=== PATIENT | male | born 1995 | race Two or more races ===

== ENCOUNTER 2024-05-10 02:48 | Emergency (ER) | payer MEDICAID, SELFPAY ==
[2024-05-10 02:49] VITALS: BMI 21.6
[2024-05-10 03:02] VITALS: BP 107/63; PULSE 108; RESP 18; TEMP 37.4; O2SAT 96
--- NOTE | 2024-05-10 03:04 | PD.EDRME ---
Rapid Medical Screening Exam RME Arrival date/time: 05/10/24 02:48 28 year old male present to ED for c/o of n/v. abd pain, recent from [place] I have greeted and performed a focused initial assessment of this patient. A comprehensive ED assessment and evaluation of the patient, analysis of all test results, and completion of the medical decision making process will be conducted by additional ED providers. Chief Complaint: Abdominal Pain Time Seen by Provider: 05/10/24 02:51 Vital signs: Vital Signs Temperature 99.3 F 05/10/24 03:02 Pulse Rate 108 H 05/10/24 03:02 Respiratory Rate 18 05/10/24 03:02 Blood Pressure 107/63 05/10/24 03:02 Pulse Oximetry (%) 96 05/10/24 03:02 Oxygen Delivery Method Room Air 05/10/24 03:02
--- NOTE | 2024-05-10 03:34 | EKG_ITS ---
[facility] Test Date: 2024-05-10 Pat Name: MILTON BARRERA Department: Room: - Gender: Male Patient Coordinator: : 1995 Requested By: Duke Walker Order Number: [id number] Reading MD: Duke Walker Measurements Intervals [place] Rate: 108 P: 43 MD: 128 QRS: 252 QRSD: 93 T: 115 QT: 319 QTc: 428 Interpretive Statements SINUS TACHYCARDIA LEFT ATRIAL ENLARGEMENT [-0.15mV P-WAVE IN V1/V2] INDETERMINATE AXIS INCOMPLETE RIGHT BUNDLE BRANCH BLOCK [90+ ms QRS DURATION, TERMINAL R IN V1/V2, 40+ ms S IN I/aVL/V4/V5/V6] ST DEVIATION AND MODERATE T-WAVE ABNORMALITY, CONSIDER LATERAL ISCHEMIA [-0.1+ mV T-WAVE IN I/aVL/V5/V6] Compared to ECG 09/12/2022 21:51:24 Indeterminate axis now present Sinus rhythm no longer present ST (T wave) deviation no longer present Early repolarization no longer present T-wave abnormality still present Possible ischemia still present /store/S0/[id number]/ecg/[id number].pdf
[2024-05-10 03:38] LABS: Basophils % (Auto) 0 % (0-2.5); Eosinophils # (Auto) 0.1 Thou/mm3 (0.0-0.5); Eosinophils % (Auto) 1 % (0-10); Hematocrit 41.3 % (41.0-53.0); Hemoglobin 13.6 g/dL (13.5-16.0); Immature Granulocytes % (Auto) 0 % (0-0); Immature Granulocytes Auto 0.04 Thou/mm3 (0.00-0.00); Lymphocytes # (Auto) 0.5 Thou/mm3 (1.0-4.8); Lymphocytes % (Auto) 6 % (10-50); Mean Corpuscular HGB Conc 32.9 g/dl (31.0-37.0); Mean Corpuscular Volume 91 fL (80-100); Monocytes # (Auto) 0.6 Thou/mm3 (0.0-0.8); Monocytes % (Auto) 6 % (0-12); Neutrophils # (Auto) 8.1 Thou/mm3 (1.8-7.7); Neutrophils % (Auto) 86 % (37-80); Nucleated Red Blood Cell % 0 /100 WBC (0); Platelet Count 199 Thou/mm3 (140-440); RDW Standard Deviation 46.9 fL (35.1-43.9); Red Blood Count 4.53 Miln/mm3 (4.50-5.90); White Blood Count 9.3 Thou/mm3 (3.8-10.6)
[2024-05-10] MEDS: ONDANSETRON ODT 4 MG TABRAP PO (03:51)
[2024-05-10 04:00] LABS: Alanine Aminotransferase 191 U/L (10-49); Albumin, Serum 4.4 gm/dL (3.5-5.0); Albumin/Globulin Ratio 1.5 (1.2-2.2); Alkaline Phosphatase 166 U/L (46-116); Anion Gap 10 (7-16); Aspartate Amino Transferase 121 U/L (0-34); BUN/Creatinine Ratio 24 Ratio (12-20); Blood Urea Nitrogen 26 mg/dL (9-23); Calcium 10.1 mg/dL (8.3-10.6); Calcium (Corrected) 10.1 mg/dL (8.5-10.1); Carbon Dioxide 18.8 mMol/L (20.0-31.0); Chloride 113 mMol/L (98-107); Creatinine (Component) 1.1 mg/dL (0.6-1.3); Estimated Creatinine Clearance 82.6 mL/min (>60); Globulin 2.9 gm/dL (2.3-3.5); Glucose 112 mg/dL (74-106); Lipase 29 U/L (12-53); Osmolality,Calculated 288 (275-295); Potassium 4.6 mMol/L (3.4-5.1); Sodium 142 mMol/L (136-145); Total Protein 7.3 gm/dL (5.7-8.2); Troponin I < 0.020 ng/mL (0.0-0.045); eGFR > 60 See Note
[2024-05-10] MEDS: ONDANSETRON INJ 2 MG/ML INJ 2 ML 4 MG IV (04:45)
[2024-05-10] MEDS: SODIUM CHLORIDE 0.9% 1000 ML 1,000 ML 999 ML IV (04:52)
[2024-05-10 05:58] VITALS: BP 131/89; PULSE 108; RESP 19; TEMP 37.2; O2SAT 97
--- NOTE | 2024-05-10 06:37 | PD.EDNV ---
Nausea/Vomit./Diarrhea-RME/HPI General Chief complaint: Abdominal Pain Stated complaint: POSSIBLE FOOD POISONING Time Seen by Provider: 05/10/24 02:51 Arrival date/time: 05/10/24 02:48 RME / HPI RME / HPI Narrative: 05/10/24 02:48 28 year old male present to ED for c/o of n/v. abd pain, recent from [place] I have greeted and performed a focused initial assessment of this patient. A comprehensive ED assessment and evaluation of the patient, analysis of all test results, and completion of the medical decision making process will be conducted by additional ED providers. DR. DAVENPORT MAIN ED EVALUATION: 28 year old male presents to the Emergency Department with complaints of nausea, vomiting, diarrhea, and upper abdominal pain. Symptoms are mild to moderate. Pain is described as aching and associated with vomiting. Patient just returned from [place] Saturday, 3 days ago. No chest pain, fall, injury, cough, fever, chills, or other symptoms reported at this time. By the time I saw the patient he had already got pain medication and states he was feeling better. He was just complaining of acid reflux symptoms and asked for an antiacid. He states that his PCP has been decreasing his famotidone and omeprazole and that is why he has been having more acid reflux. 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 Neal. Social Hx: No tobacco, alcohol, or substance use. Related Data Home Medications ?Medication ?Instructions ?Recorded ?Confirmed metoprolol succinate 50 mg 100 mg PO QDAY 08/24/20 06/21/23 tablet,extended release 24 hr amlodipine 10 mg tablet 1 tab PO HS 09/28/21 06/21/23 famotidine 20 mg tablet 20 mg PO QDAY 09/28/21 06/21/23 pantoprazole 40 mg tablet,delayed 40 mg PO BID 09/28/21 06/21/23 release (Protonix) bumetanide 2 mg tablet 2 mg PO QDAY 06/21/23 06/21/23 gabapentin 100 mg capsule 100 mg PO QPM 06/21/23 06/21/23 mycophenolate mofetil 500 mg 500 mg PO BID 06/21/23 06/21/23 tablet (CellCept) tamsulosin 0.4 mg capsule 0.4 mg PO QDAY 06/21/23 06/21/23 Allergies Allergy/AdvReac Type Severity Reaction Status Date / Time vancomycin Allergy Rash Verified 06/21/23 17:16 Review of Systems Review of Systems Systems Reviewed: All systems reviewed, normal except as documented Past Medical History Past Medical History CARDIAC: Positive Cardiac Disorders and Hypertension GASTROINTESTINAL: Positive Gastrointestinal Disorders and Ulcer GENITOURINARY: Positive Genitourinary Disorders, Renal Disease and Dialysis OTHER HISTORY: Positive Autoimmune Disease Surgical History SURGICAL: Positive Abdominal Surgery Social History SMOKING STATUS: Never smoker SUBSTANCE USE: does not use ALCOHOL: Never ED Exam Narrative Physical exam: GENERAL APPEARANCE: alert and oriented x 4, well-developed, well-nourished, no acute distress VITALS: All vitals were reviewed and the pulse ox is 97% on room air, which is normal according to my interpretation. HEENT: Normocephalic, atraumatic; pupils equal, round, reactive to light; EOMI; mucous membranes pink, moist; oropharynx clear NECK: Supple LUNGS: CTABL; no wheezes, no rales, no rhonchi HEART: Regular rate, regular rhythm; normal S1, S2; no murmurs ABDOMEN: non distended; normal BS; soft, no tenderness, no guarding, no rebound; no masses, no organomegaly, no hernia BACK: no CVA tenderness EXTREMITIES: atraumatic; no edema NEUROLOGIC: awake; alert and oriented x4; cranial nerves II-XII grossly intact; no focal sensory or motor deficits PSYCHIATRIC: appropriate mood and affect SKIN: warm, dry, normal color; no rashes Course Course Course Narrative: [id number]: Request UA Quality Measures none Orders Category Date Time Status EKG (ED ONLY) *Do not use* NOW Care 05/10/24 03:34 Completed EKG (ED Only) Stat Exams 05/10/24 03:34 Draft CBC Stat Lab 05/10/24 03:18 Completed CMP [Comprehensive Metabolic Panel] Stat Lab 05/10/24 03:18 Completed Lipase Stat Lab 05/10/24 03:18 Completed Troponin I Stat Lab 05/10/24 03:18 Completed UA [Urinalysis] Stat Lab 05/10/24 09:47 Completed Ondansetron Inj [Zofran Inj] Med 05/10/24 03:04 Discontinued 4 mg IV X1 ONE Ondansetron Odt [Zofran Odt] Med 05/10/24 03:35 Discontinued 4 mg PO X1 ONE Pantoprazole Inj [Protonix Inj] Med 05/10/24 07:04 Discontinued 40 mg IVP X1 ONE Sodium Chloride 0.9% 1000 ml [Ns] 1,000 ml Med 05/10/24 03:05 Discontinued IV 999 mls/hr Sucralfate Susp [Carafate Susp] Med 05/10/24 07:04 Discontinued 1 gm PO X1 ONE mg Hyd/Al Hyd/Eder Susp [Maalox Susp] Med 05/10/24 07:04 Discontinued 30 ml PO X1 ONE Vital Signs Vital signs: Vital Signs Temperature 99.3 F 05/10/24 03:02 Pulse Rate 108 H 05/10/24 03:02 Respiratory Rate 18 05/10/24 03:02 Blood Pressure 107/63 05/10/24 03:02 Pulse Oximetry (%) 96 05/10/24 03:02 Oxygen Delivery Method Room Air 05/10/24 03:02 Nausea/Vomiting/Diarrhea MDM Narrative MDM Narrative:: Swetha Lowry am scribing for and in the presence of Dr. Davenport. 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 Neal. How is presenting disease/condition affected by chronic disease/condition?: exacerbated by Evaluation data The following diagnostics were reviewed and interpreted by me:: lab results and EKG tracing(s) Lab and/or radiology exams considered but not ordered:: none Interpretation Summary: EKG#1: EKG at 0354 hours. Interpreted by me: sinus rhythm, rate 108, ST elevation in lead 3 and V1, ST depression and T wave inversion in lead 1, similar as previous EKG on 10/04/[address] elevation today. Medications / Prescriptions Medications / Prescriptions considered but not ordered:: none Medication administrations:: Medication Administration History Discontinued Medications Al Hydrox/Mg Hydrox/Simethicone (Mg Hyd/Al Hyd/Eder (Maalox Reg) Susp 30 Ml Udc) 30 ml PO X1 ONE Stop: 05/10/24 07:05 Last Admin: 05/10/24 07:27 Dose: 30 ml Documented By: ALVINO Sodium Chloride (Ns) 1,000 mls @ 999 mls/hr IV .Q1H1M ONE Stop: 05/10/24 04:05 Last Infusion: 05/10/24 06:19 Dose: Infused Documented By: Admin: 05/10/24 04:52 Dose: 999 mls/hr Documented By: MICHAEL Ondansetron HCl (Ondansetron Inj 2 Mg/Ml Inj 2 Ml) 4 mg IV X1 ONE; Protocol Stop: 05/10/24 03:05 Last Admin: 05/10/24 04:45 Dose: 4 mg Documented By: MICHAEL Ondansetron HCl (Ondansetron Odt 4 Mg Tabrap) 4 mg PO X1 ONE; Protocol Stop: 05/10/24 03:36 Last Admin: 05/10/24 03:51 Dose: 4 mg Documented By: GERMAN Pantoprazole Sodium (Pantoprazole Inj 40 Mg Vial) 40 mg IVP X1 ONE Stop: 05/10/24 07:05 Last Admin: 05/10/24 07:27 Dose: 40 mg Documented By: ALVINO Sucralfate (Sucralfate Susp 1 Gm/10 Ml Udc) 1 gm PO X1 ONE Stop: 05/10/24 07:05 Last Admin: 05/10/24 07:45 Dose: Not Given Documented By: ALVINO Non-Admin Reason: Patient Refused Comments: sates he's ok right now see above Consultations Consultation(s) initiated? (list below): No Diagnosis Nausea Differential Diagnosis: traveler's diarrhea, food poisoning, gastroenteritis and dehydration Most likely diagnosis given after review of the tests above:: Vomiting Gastroenteritis Diarrhea Acid reflux Admission Indicated Admission indicated?: not indicated Admission Request Was there a request for admission?: No Disposition Plan Disposition Plan: Discharge Discharge Attestation Discharge Attestation: The patient and all family members were given an opportunity to ask questions and understood the discharge instructions. Discharge instructions specifically effects, indications for sooner follow up or return to the emergency department, and the expected course of current diagnosis. Patient condition: Stable Discharge Plan Plan Patient Disposition: HOME (Self Care) Prescriptions/Referrals Prescriptions/Med Rec: No Action metoprolol succinate 50 mg Tablet Extended Release 24 Hr 100 mg PO QDAY famotidine 20 mg Tablet 20 mg PO QDAY Rx Instructions: Not on patient medication list. amlodipine 10 mg tablet 1 tab PO HS Patient Comments: TAKE 1 TABLET BY MOUTH EVERY DAY pantoprazole [Protonix] 40 mg tablet,delayed release (DR/EC) 40 mg PO BID Rx Instructions: Take 1 capsule by mouth twice daily bumetanide 2 mg tablet 2 mg PO QDAY Patient Comments: TAKE 1 TABLET BY MOUTH EVERY DAY mycophenolate mofetil [CellCept] 500 mg Tablet 500 mg PO BID tamsulosin 0.4 mg capsule 0.4 mg PO QDAY Patient Comments: TAKE 1 CAPSULE BY MOUTH EVERY DAY gabapentin 100 mg capsule 100 mg PO QPM Patient Comments: TAKE 1 CAPSULE BY MOUTH EVERYDAY AT BEDTIME Referrals: Henri Neal MD [Primary Care Provider] - In 1 week Problem List Clinical Impression: Vomiting, Gastroenteritis, Diarrhea, Acid reflux Patient/Caregiver Discharge Instructions Education Materials: ED Gastroenteritis, Viral (Adult) Print Language: Libyan Stand Alone Forms: Desiree Award Info., Patient Portal Info Letter
[2024-05-10] MEDS: MG HYD/AL HYD/SIME (Maalox Reg) SUSP 30 ML UDC PO (07:27)
[2024-05-10] MEDS: PANTOPRAZOLE INJ 40 MG VIAL IVP (07:27)
[2024-05-10 07:57] VITALS: BP 110/63; PULSE 100; RESP 18; TEMP 36.9; O2SAT 96
[2024-05-10 09:51] LABS: Collection Type, Urine Voided; Squamous Epithelial Cell,Urine 0 /hpf (0-5)
[2024-05-10 10:05] LABS: Bilirubin,Urine Negative (Negative); Blood,Urine Negative (Negative); Clarity,Urine Clear (Clear/Hazy); Color,Urine Yellow (Lt Yel-Yel); Glucose, Urine Negative (Negative); Ketones,Urine Negative (Negative); Leukocyte Esterase,Urine Negative (Negative); Nitrite,Urine Negative (Negative); PH,Urine 5.5 (5.0-7.0); Protein,Urine Negative (Neg - Trace); RBC,Urine 1 /hpf (0-3); Specific Gravity,Urine 1.024 (1.001-1.035); Urobilinogen,Urine Negative mg/dL (0.0-1.0); WBC,Urine 1 /hpf (0-5)
[2024-05-10 10:12] VITALS: BP 113/75; PULSE 100; RESP 18; TEMP 36.4; O2SAT 97
== END 2024-05-10 11:08 | disposition home or self-care (01) ==
PROVIDERS: Physician Assistant; Emergency Provider Emergency Medicine; PCP Internal Medicine
DX: K52.9 Noninfective gastroenteritis and colitis, unspecified (principal); K21.9 Gastro-esophageal reflux disease without esophagitis; R00.0 Tachycardia, unspecified; I45.10 Unspecified right bundle-branch block
CPT/HCPCS: 36415; 80053; 81001; 83690; 84484; 85025; 93005; 96361; 96374; 99284; J2405; J2470; J7030; Q0162; A9270